=== PATIENT | female | born 1990 | race Caucasian/White ===

== ENCOUNTER 2019-08-27 16:18 | Emergency (ER) | payer MEDICAID ==
[~2019-08-27] VITALS: Ht 162.6 cm; Wt 57.6 kg
[2019-08-27 16:39] VITALS: Ht 162.6 cm; Wt 57.6 kg
[2019-08-27 17:37] LABS: BASOPHIL % 0.3 % (0-2); CALCIUM 9.1 mg/dL (8.5-10.1); CARBON DIOXIDE 28.6 mmol/L (21-32); CHLORIDE SERUM 104 mmol/L (98-107); CREATININE SERUM 0.7 mg/dL (0.6-1.0); GFR1 > 60 mL/min; GLUCOSE SERUM 81 mg/dL (74-106); PLATELET COUNT 265 x10^3mcL (130-400); POTASSIUM SERUM 4.1 mmol/L (3.5-5.1); RED CELL DISTRIBUTION WIDTH 13.3 % (11.5-14.5); SODIUM SERUM 144 mmol/L (136-145)
[2019-08-27 17:43] LABS: ALBUMIN 4.1 g/dL (3.4-5.0); ALKALINE PHOSPHATASE 75 U/L (46-116); ALT/SGPT 27 U/L (14-59); AST/SGOT 17 U/L (15-37); BILIRUBIN TOTAL 0.4 mg/dL (0.20-1.00); LIPASE 104 IU/L (73-393); TOTAL PROTEIN, SERUM 7.8 g/dL (6.4-8.2)
[2019-08-27 18:19] VITALS: BP 100/67
== END 2019-08-27 18:20 | disposition home or self-care (01) ==
LOC: ED 16:18
PROVIDERS: Student in an Organized Health Care Education/Training Program
DX: R56.9 Unspecified convulsions (principal)
CPT/HCPCS: 82962; J1953

== ENCOUNTER 2019-08-27 19:15 | Emergency (ER) | payer MEDICAID ==
[~2019-08-27] VITALS: Ht 162.6 cm; Wt 57.6 kg
[2019-08-27 19:33] VITALS: Ht 162.6 cm; Wt 57.6 kg
[2019-08-27 22:08] VITALS: BP 115/78
== END 2019-08-27 22:08 | disposition home or self-care (01) ==
LOC: ED 19:15
DX: R56.9 Unspecified convulsions (principal); R51 Headache
CPT/HCPCS: 82962; Q0162